=== PATIENT | male | born 1975 | race Caucasian/White ===

== ENCOUNTER 2025-08-06 07:49 | Outpatient (CLI) | payer OTHER, SELFPAY | END 2025-08-06 07:50 | disposition home or self-care (01) | PROVIDERS: PCP Family Medicine; Visit Provider Family Medicine | DX: E78.5 Hyperlipidemia, unspecified (principal); E66.9 Obesity, unspecified; Z12.5 Encounter for screening for malignant neoplasm of prostate; Z13.9 Encounter for screening, unspecified | CPT/HCPCS: 80053; 80061; G0103 ==